=== PATIENT | female | born 1970 | race Caucasian/White ===

== ENCOUNTER → 2016-09-21 | Outpatient (CLI) | payer BC ==
[~2016-09-21] MED LIST: CALCCHW19 PO; MULTCAP PO; OMEG100011 PO; OMEP40CA2 PO; ZANT1TAB PO
--- NOTE | 2016-09-23 09:01 | REP ---
MRI CERVICAL SPINE WITHOUT CONTRAST: HISTORY: Neck pain. COMPARISON: 06/26/2011. A small central disc protrusion is present at the C3-4 level. There is minimal effacement of the thecal sac without spinal cord compression. Uncinate process hypertrophy is present on the right. This produces mild narrowing of the right C3 neural foramen. The left C3 neural foramen is patent. A disc bulge and small central disc protrusion are present at the C4-5 level. There is mild effacement of the thecal sac without spinal cord compression. Uncinate process hypertrophy is present on the right. This produces mild narrowing of the right C4 neural foramen. The left C4 neural foramen is patent. A disc bulge with associated osteophytes formation is present at the C5-6 level. There is moderate effacement of the thecal sac without spinal cord compression. Uncinate process hypertrophy is present on the right. This produces moderate narrowing of the right C5 neural foramen. The left C5 neural foramen is patent. A disc bulge and mild size left paracentral and intraforaminal disc protrusion are present at the C6-7 level. The disc protrusion is decreased in size. There is moderate effacement of the thecal sac without spinal cord compression. Uncinate process hypertrophy is present on the left. There is minimal narrowing of the left C6 neural foramen. The right C6 neural foramen is patent. A small central disc protrusion is present at the C7-T1 level. There is minimal effacement of the thecal sac without spinal cord compression. The C7 neural foramina are patent. There is no other disc bulge or herniation. The remaining neural foramina are patent. The spinal cord is normal in signal intensity. There is no intradural extramedullary lesion. The C3-4 through C6-7 intervertebral discs are decreased in height consistent with disc degeneration. Increased signal intensity on T2-weighted images is present in the endplates of the C6 and 7 vertebral bodies. This represents degenerative change. A 7 mm focus of increased signal intensity on T2-weighted images is present in the right thyroid lobe. IMPRESSION: 1. There is cervical spondylosis at the C3-4 through C7-T1 levels without spinal cord compression. The uncinate process hypertrophy at the C3-4 and C4-5 levels and disc protrusion at the C7-T1 level are new findings. The disc protrusion at the C6-7 level is decreased in size. 2. There is a 7 mm focus of increased signal intensity in the right thyroid lobe. This most likely represents a cyst. Ultrasound may be helpful for further evaluation. Signed by Evan Lott MD 09/23/2016 09:17 A
== END ==
LOC: M RAD 12:14
PROVIDERS: ATTEND Family Medicine
DX: M47.892 Other spondylosis, cervical region (principal); E04.1 Nontoxic single thyroid nodule

== ENCOUNTER → 2016-10-24 | Outpatient (CLI) | payer BC ==
--- NOTE | 2016-10-25 08:23 | REP ---
Clinical: Thyroid nodule. Technique: Real time faust scale and color evaluation using linear high frequency transducer. Findings: The thyroid gland is normal in contour, size, echogenicity, and overall appearance without nodule or cyst. Right lobe measures 4.0 x 1.7 x 1.6 cm. Left lobe measures 3.7 x 1.2 x 1.3 cm. Isthmus measures 3 mm in width. Impression: Normal thyroid ultrasound. Signed by Gt Whitten MD 10/25/2016 08:14 A
== END ==
LOC: M RAD 17:10
PROVIDERS: ATTEND Family Medicine
DX: E07.9 Disorder of thyroid, unspecified (principal)

== ENCOUNTER → 2017-07-17 | Outpatient (REF) | payer BC | LOC: M SFHCWAGY 14:07 | PROVIDERS: ATTEND Nurse Practitioner Family | DX: Z12.4 Encounter for screening for malignant neoplasm of cervix (principal) ==

== ENCOUNTER → 2017-07-17 | Outpatient (CLI) | payer BC ==
--- NOTE | 2017-07-17 15:28 | REPMRS ---
Patient History The patient states she had a clinical breast exam in 07/13 Patient is postmenopausal. Family history of prostate cancer in father at age 50 or over and breast cancer in maternal aunt at age 50 or over. Took hormonal contraceptives for 5 years. Taking estrogen for 4 years. Taking progesterone for 4 years. Digital Woman Screen Mammo: July 17, 2017 - Exam #: [id number] Bilateral CC and MLO view(s) were taken. Technologist: Tracey Snell, Technologist Prior study comparison: July 16, 2016, digital woman screen mammo performed at [facility]. July 17, 2015, digital woman screen mammo performed at [facility]. FINDINGS: There are scattered fibroglandular densities. There has been no change in the appearance of the mammogram from the prior studies. There is a mild amount of residual fibroglandular tissue which is fairly symmetric. There is no interval development of dominant mass, architectural distortion, or clustered microcalcification suggestive of malignancy. ASSESSMENT: BI-RADS/ACR category 1 mammogram. Negative. Recommendation Routine screening mammogram in 1 year (for women over age 40). This mammogram was interpreted with the aid of an FDA-approved computer-aided dectection system. Electronically Signed By: Javier Lopez MD 07/17/17 [id number]
== END ==
LOC: M WHC 13:27
PROVIDERS: ATTEND Nurse Practitioner Family
DX: Z12.31 Encounter for screening mammogram for malignant neoplasm of breast (principal); Z78.0 Asymptomatic menopausal state; Z92.0 Personal history of contraception

== ENCOUNTER → 2018-08-18 | Outpatient (CLI) | payer BC ==
[~2018-08-18] MED LIST changes: +ZANT150T15 PO; -ZANT1TAB PO
--- NOTE | 2018-08-18 10:26 | REPMRS ---
Patient History The patient states she had a clinical breast exam in 07/2018. Patient is postmenopausal. Family history of breast cancer at age 50 or over in maternal aunt, prostate cancer at age 50 or over in father. Took hormonal contraceptives for 5 years. Took estrogen for 5 years. Took progesterone for 5 years. Digital Woman Screen Mammo: August 18, 2018 - Exam #: [id number] Bilateral CC and MLO view(s) were taken. Technologist: Cora Dewey, Technologist Prior study comparison: July 17, 2017, digital woman screen mammo performed at [facility]. July 16, 2016, digital woman screen mammo performed at [facility]. July 17, 2015, digital woman screen mammo performed at [facility]. FINDINGS: There are scattered fibroglandular densities. There has been no change in the appearance of the mammogram from the prior studies. There is a mild amount of scattered fibroglandular density which is fairly symmetric. There is no interval development of dominant mass, architectural distortion, or clustered microcalcification suggestive of malignancy. 3-D tomosynthesis shows no additional findings. Assessment: BI-RADS/ACR category 1 mammogram. Negative Mammogram. Recommendation Routine screening mammogram of both breasts in 1 year (for women over age 40). This patient's Lifetime Breast Cancer RIsk is estimated at 13.7 %. This mammogram was interpreted with the aid of an FDA-approved computer-aided dectection system. Electronically Signed By: Luis Enrique Kaplan MD 08/18/18 [id number]
== END ==
LOC: M WHC 08:38
PROVIDERS: ATTEND Nurse Practitioner Family
DX: Z12.31 Encounter for screening mammogram for malignant neoplasm of breast (principal); Z78.0 Asymptomatic menopausal state; Z92.0 Personal history of contraception; Z92.23 Personal history of estrogen therapy

== ENCOUNTER → 2018-12-04 | Outpatient (CLI) | payer BC ==
--- NOTE | 2018-12-04 07:51 | REP ---
Clinical: Abdominal pain and history of gastroesophageal reflux disease. Technique: Real time faust scale ultrasound examination using curved array transducer. Findings: Liver and visualized pancreas are normal in contour, size, echogenicity without focal hepatic or pancreatic lesions identified. Gallbladder demonstrates mobile gallstone(s) without wall thickening or pericholecystic fluid and no sonographic Yeh's sign. No biliary ductal dilatation is appreciated and the common bile duct measures 3.9 mm diameter. The right kidney is normal in reniform shape without hydronephrosis and measures 10.3 x 5.0 x 4.1 cm. No ascites in the visualized right upper quadrant. Impression: Cholelithiasis. Electronically Signed by Gt Whitten MD 12/04/2018 07:43 A
== END ==
LOC: M RAD 06:44
PROVIDERS: ATTEND Internal Medicine Gastroenterology
DX: K80.20 Calculus of gallbladder without cholecystitis without obstruction (principal); R13.10 Dysphagia, unspecified; Z12.11 Encounter for screening for malignant neoplasm of colon

== ENCOUNTER → 2019-06-16 | Outpatient (CLI) | payer BC ==
[~2019-06-16] MED LIST changes: -OMEP40CA2 PO; +OMEP40CA97 PO
[2019-06-16 14:57] LABS: ALBUMIN 3.9 GM/DL (3.2-5.2); ALT/SGPT 44 U/L (12-78); BILIRUBIN,DIRECT < 0.1 MG/DL (0.0-0.2); BILIRUBIN,TOTAL 0.4 MG/DL (0.2-1.0); LIPASE 112 U/L (73-393); TOTAL PROTEIN 7.7 GM/DL (6.4-8.2)
== END ==
LOC: M LAB 13:45
PROVIDERS: ATTEND Internal Medicine Gastroenterology
DX: K21.9 Gastro-esophageal reflux disease without esophagitis (principal); R13.10 Dysphagia, unspecified; Z12.11 Encounter for screening for malignant neoplasm of colon

== ENCOUNTER → 2019-07-02 | Outpatient (CLI) | payer BC ==
[2019-07-02 09:53] LABS: APPEARANCE, URINE CLEAR (CLEAR); BACTERIA, URINE AUTO 1+ (NEGATIVE); BILIRUBIN, URINE AUTO NEGATIVE (NEGATIVE); BLOOD, URINE BLOOD NEGATIVE (NEGATIVE); COLOR, URINE STRAW (YELLOW); GLUCOSE, URINE (UA) AUTO NEGATIVE (NEGATIVE); KETONE, URINE AUTO NEGATIVE (NEGATIVE); LEUKOCYTE ESTERASE, URINE AUTO NEGATIVE (NEGATIVE); NITRITE, URINE AUTO NEGATIVE (NEGATIVE); PROTEIN, URINE AUTO NEGATIVE (NEGATIVE); RBC, URINE AUTO 1 /HPF (0-3); SPECIFIC GRAVITY URINE AUTO 1.009 (1.002-1.035); SQUAMOUS EPITHELIAL CELL UR AU 1 /HPF (0-6); UROBILINOGEN, URINE AUTO 0.2 mg/dL (0.0-2.0); WBC, URINE AUTO 1 /HPF (0-3)
[2019-07-02 10:23] LABS: ALBUMIN 4.1 GM/DL (3.2-5.2); ALT/SGPT 36 U/L (12-78); BILIRUBIN,TOTAL 0.5 MG/DL (0.2-1.0); BLOOD UREA NITROGEN 21 MG/DL (7-18); CALCIUM LEVEL 9.3 MG/DL (8.5-10.1); CARBON DIOXIDE LEVEL 30 MEQ/L (21-32); CHLORIDE LEVEL 106 MEQ/L (98-107); CHOLESTEROL LEVEL 253 MG/DL (<200); CHOLESTEROL RISK RATIO 4.362 (<5); CREATININE FOR GFR 0.78 MG/DL (0.55-1.30); FREE T4 0.94 NG/DL (0.76-1.46); GLOMERULAR FILTRATION RATE > 60.0 (>51); GLUCOSE, FASTING 92 MG/DL (70-100); HDL CHOLESTEROL 58 MG/DL (>40); LDL CHOLESTEROL 179 MG/DL (<100); NON-HDL-C 195 MG/DL; POTASSIUM SERUM 4.8 MEQ/L (3.5-5.1); SODIUM LEVEL 140 MEQ/L (136-145); TOTAL PROTEIN 7.8 GM/DL (6.4-8.2); TRIGLYCERIDES LEVEL 78 MG/DL (<150)
== END ==
LOC: M LAB 09:05
PROVIDERS: ATTEND Family Medicine
DX: Z00.00 Encounter for general adult medical examination without abnormal findings (principal)

== ENCOUNTER → 2019-08-27 | Outpatient (CLI) | payer BC ==
[2019-08-27 17:06] LABS: BLOOD UREA NITROGEN 15 MG/DL (7-18); CALCIUM LEVEL 8.9 MG/DL (8.5-10.1); CARBON DIOXIDE LEVEL 30 MEQ/L (21-32); CHLORIDE LEVEL 102 MEQ/L (98-107); CK-MB VALUE MASS 2.3 NG/ML (<3.6); CPK CREATINE PHOSPHOKINASE 143 U/L (26-192); CREATININE FOR GFR 0.59 MG/DL (0.55-1.30); GLOMERULAR FILTRATION RATE > 60.0 (>51); GLUCOSE, FASTING 86 MG/DL (70-100); MB/CK RELATIVE INDEX 1.61 (< OR =4); POTASSIUM SERUM 4.2 MEQ/L (3.5-5.1); SODIUM LEVEL 137 MEQ/L (136-145); TROPONIN I < 0.02 NG/ML (< 0.10)
== END ==
LOC: M LAB 16:07
PROVIDERS: ATTEND Family Medicine
DX: I45.10 Unspecified right bundle-branch block (principal)

== ENCOUNTER → 2019-08-27 | Outpatient (REF) | payer BC | LOC: M SFHCLERA 08:54 | PROVIDERS: ATTEND Family Medicine | DX: Z53.9 Procedure and treatment not carried out, unspecified reason (principal) ==

== ENCOUNTER → 2019-09-02 | Outpatient (CLI) | payer BC ==
--- NOTE | 2019-09-04 19:41 | ECHO ---
DATE OF PROCEDURE: 09/02/2019 REFERRING INDIVIDUAL: Dr. Rut Odonnell INDICATION: Right bundle branch block. HEIGHT: 5 feet 8 inches. WEIGHT: 232 pounds 2D MEASUREMENTS: Aortic root: 2.7 cm Left atrium: 3.4 cm Aortic annulus: 2.1 cm Ventricular septum: 1.14 cm Posterior wall: 1.08 cm Left ventricle diastole: 3.7 cm Inferior vena cava: 1.9 cm DOPPLER MEASUREMENTS: No aortic regurgitation. LVOT velocity: 112 cm/s LVOT VTI: 21.5 cm No mitral regurgitation. Mitral E velocity: 84.4 cm/s Mitral A velocity: 89.1 cm/s Mitral deceleration time: 211 ms No tricuspid regurgitation. No pulmonic regurgitation. Pulmonary acceleration time: 123 ms MITRAL ANNULAR TISSUE DOPPLER: E prime septal: 7.7 cm/s E prime lateral: 11.6 cm/s DESCRIPTION: Rhythm was sinus with right bundle branch block type morphology. Image quality was fair. No pericardial effusion. This was a 2D, M-mode, color flow Doppler and pulse wave Doppler examination and included mitral annular tissue Doppler. CONCLUSIONS: 1. Normal left ventricle internal dimensions and wall thickness. Normal regional left ventricular (LV) wall motion and wall thickening. Normal LV systolic function. Left ventricular ejection fraction (LVEF) 65% by visual estimate. Normal LV diastolic function for age. 2. Suggestive of normal pulmonary artery systolic pressure. Normal right ventricle size and systolic function. 3. Otherwise normal appearing echocardiogram Doppler findings. MTDD
== END ==
LOC: M CARPUL 08:13
PROVIDERS: ATTEND Family Medicine
DX: I45.10 Unspecified right bundle-branch block (principal)

== ENCOUNTER → 2019-09-07 | Outpatient (CLI) | payer BC ==
--- NOTE | 2019-09-07 09:40 | REPMRS ---
Patient History The patient states she had a clinical breast exam in 2019. Family history of breast cancer at age 50 or over in maternal aunt, prostate cancer at age 50 or over in father. Took hormonal contraceptives for 5 years. Took estrogen for 5 years. Took progesterone for 5 years. Digital Woman Screen Mammo: September 07, 2019 - Exam #: [id number] Bilateral CC and MLO view(s) were taken. Technologist: Sejal Ritter, Technologist Prior study comparison: August 18, 2018, bilateral digital woman screen mammo performed at [facility]. July 17, 2017, digital woman screen mammo performed at [facility]. July 16, 2016, digital woman screen mammo performed at [facility]. FINDINGS: There are scattered fibroglandular densities. There has been no change in the appearance of the mammogram from the prior studies. There is a mild amount of scattered fibroglandular density which is fairly symmetric. There is no interval development of dominant mass, architectural distortion, or grouped microcalcification suggestive of malignancy. 3-D tomosynthesis shows no additional findings. Assessment: BI-RADS/ACR category 1 mammogram. Negative Mammogram. Recommendation Routine screening mammogram of both breasts in 1 year (for women over age 40). This patient's Lifetime Breast Cancer Risk is estimated at 13.4 %. This mammogram was interpreted with the aid of an FDA-approved computer-aided dectection system. Electronically Signed By: Luis Enrique Kaplan MD 09/07/19 2036
== END ==
LOC: M WHC 08:26
PROVIDERS: ATTEND Nurse Practitioner Family
DX: Z12.31 Encounter for screening mammogram for malignant neoplasm of breast (principal); Z92.0 Personal history of contraception; Z92.89 Personal history of other medical treatment

== ENCOUNTER → 2019-09-07 | Outpatient (CLI) | payer BC | LOC: M PLALAB 09:23 | PROVIDERS: ATTEND Nurse Practitioner Family | DX: Z12.4 Encounter for screening for malignant neoplasm of cervix (principal); Z13.79 Encounter for other screening for genetic and chromosomal anomalies | CPT/HCPCS: 36415; G0123 ==

== ENCOUNTER → 2019-12-10 | Outpatient (CLI) | payer BC ==
--- NOTE | 2019-12-16 08:10 | SLEEPCENT ---
DATE OF STUDY: 12/10/2019 ORDERED BY: Leonarda Hernandez Nocturnal polysomnography was performed for evaluation of sleep physiology in this patient with a history of excessive somnolence and nonrestorative sleep. 7 hours and 45 minutes of data were reviewed. There were 390 minutes of sleep identified. Sleep latency was short at 4.5 minutes. Rapid eye movement (REM) latency was normal at 117 minutes. Sleep architecture showed fragmentation. There were 3 REM cycles. Overall sleep efficiency was 85.5%. The patient's electrocardiogram (EKG) shows a sinus rhythm with an average heart rate of 72 beats per minute. Rate ranged 60-82. Electroencephalogram (EEG) shows normal waveforms for awake and sleep stages. No focal events were identified. There were 401 respiratory events identified of 10 seconds in duration or greater for an apnea-hypopnea index of 61.7. The events were primarily obstructive, not exclusive to sleep stage nor body posture. Arousals from respiratory events occurred 13.4 times per hour and oxygen desaturations were seen into the 80s. There was some activity in the limb leads, but arousals were few and snoring was noted over the entire study. IMPRESSION: Severe obstructive sleep apnea syndrome (G47.33), apnea-hypopnea index 61.7. RECOMMENDATION: The patient should be encouraged to return to the sleep disorder center for pressure therapy. In the interim, alcohol and sedative avoidance should be practiced and caution exercised during the operation of motor vehicles.
== END ==
LOC: M SLEEP 20:00
PROVIDERS: ATTEND Nurse Practitioner Family
DX: R40.0 Somnolence (principal)

== ENCOUNTER → 2020-01-11 | Outpatient (CLI) | payer BC ==
--- NOTE | 2020-01-17 15:34 | SLEEPCENT ---
DATE OF PROCEDURE: 01/11/2020 ORDERED BY: LC Osborn Nocturnal polysomnography was performed for the titration of pressure therapy in this patient with obstructive sleep apnea syndrome. Apnea-hypopnea index 61.7. For testing the patient was fit with a ResMed F30 full-face mask of small size; 4 cm of water pressure were applied to the circuit and the lights were extinguished. 8 hours and 14 minutes of data were reviewed. There were 349.5 minutes of sleep identified. Sleep latency was prolonged at 46.5 minutes. Rapid eye movement (REM) latency was normal at 70 minutes. Sleep architecture was fair with 3 REM cycles. Overall sleep efficiency was 71.4%. The electrocardiogram showed a sinus rhythm, small complexes, average heart rate 68 beats per minute. Electroencephalogram (EEG) showed reasonably normal waveforms for awake and sleep. Respiratory events were fully palliated CPAP at a pressure of +7. Remaining measures of sleep physiology were normal. IMPRESSION: Obstructive sleep apnea syndrome (G47.33). RECOMMENDATIONS: Nightly use of pressure therapy 7 cm of water.
== END ==
LOC: M SLEEP 20:00
PROVIDERS: ATTEND Nurse Practitioner Family
DX: G47.33 Obstructive sleep apnea (adult) (pediatric) (principal)

== ENCOUNTER → 2020-04-28 | Outpatient (REF) | payer BC | LOC: M SFHCLERA 11:09 | PROVIDERS: ATTEND Nurse Practitioner Family | DX: J45.901 Unspecified asthma with (acute) exacerbation (principal); Z20.828 Contact with and (suspected) exposure to other viral communicable diseases ==

== ENCOUNTER → 2020-05-24 | Outpatient (CLI) | payer BC ==
[~2020-05-24] MED LIST changes: +PROHANCE 279.3MG/ML 15ML VIAL As Ordered ONE; +PROHANCE 279.3MG/ML 5ML VIAL As Ordered ONE
--- NOTE | 2020-05-25 09:17 | REP ---
INDICATION: HIGH RISK FOR BREAST CA. COMPARISON: Mammogram 09/07/2019. TECHNIQUE: Three [facility] MRI imaging was performed with a dedicated breast coil. Axial, coronal, and sagittal T1 and T2 weighted scans were obtained with and without fat saturation in the usual fashion. The study includes dynamically acquired post gadolinium-enhanced imaging with image subtraction. Maximum intensity projection and multi planar reformation imaging is included as well. This study is interpreted with the aid of Ensygnia, an FDA approved computer aided detection (CAD) software program, on a dedicated breast MRI workstation. The gadolinium enhancement dose is 20 mL of intravenous ProHance. FINDINGS: There is mild fibroglandular tissue bilaterally. There couple tiny subcentimeter cysts bilaterally. Is minimal background parenchymal enhancement. No axillary adenopathy is seen. There is no suspicious enhancing mass or morphologic abnormality IMPRESSION: BI-RADS category 2 benign bilateral breast MRI. No suspicious enhancing mass or morphologic abnormality. <Electronically signed by Javier Lopez > 05/25/20 0999
== END ==
LOC: M RAD 14:58
PROVIDERS: ATTEND Nurse Practitioner Family
DX: Z91.89 Other specified personal risk factors, not elsewhere classified (principal); N60.02 Solitary cyst of left breast; N60.01 Solitary cyst of right breast
CPT/HCPCS: A9576; C8908

== ENCOUNTER → 2020-08-31 | Outpatient (CLI) | payer BC ==
[~2020-08-31] MED LIST changes: -PROHANCE 279.3MG/ML 15ML VIAL As Ordered ONE; -PROHANCE 279.3MG/ML 5ML VIAL As Ordered ONE
--- NOTE | 2020-08-31 10:56 | REPMRS ---
Patient History The patient states she had a clinical breast exam in August 2020. Family history of breast cancer at age 50 or over in maternal aunt, prostate cancer at age 50 or over in father. Took hormonal contraceptives for 5 years. Took estrogen for 5 years. Took progesterone for 5 years. Digital Woman Screen Mammo: August 31, 2020 - Exam #: [id number] Bilateral CC and MLO view(s) were taken. Technologist: RT Ivy Prior study comparison: September 07, 2019, bilateral digital woman screen mammo performed at [facility]. August 18, 2018, bilateral digital woman screen mammo performed at [facility]. July 17, 2017, digital woman screen mammo performed at [facility]. FINDINGS: The breast tissue is almost entirely fat. The Volpara volumetric breast density category is: A. There has been no change in the appearance of the mammogram from the prior studies. There is no interval development of dominant mass, architectural distortion, or grouped microcalcification typical of malignancy. 3-D tomosynthesis shows no additional findings. Assessment: BI-RADS/ACR category 1 mammogram. Negative Mammogram. Recommendation Routine screening mammogram of both breasts in 1 year (for women over age 40). This patient's [facility] Lifetime Breast Cancer RIsk is estimated at 13.1 %. This mammogram was interpreted with the aid of an FDA-approved computer-aided dectection system. Electronically Signed By: Luis Enrique Kaplan MD 08/31/20 1011
== END ==
LOC: M WHC 07:50
PROVIDERS: ATTEND Nurse Practitioner Family
DX: Z12.31 Encounter for screening mammogram for malignant neoplasm of breast (principal)

== ENCOUNTER → 2021-06-13 | Outpatient (CLI) | payer BC ==
[~2021-06-13] MED LIST changes: +OMEP40CA4 PO; -OMEP40CA97 PO; +PROHANCE 279.3MG/ML 15ML VIAL As Ordered ONE; +PROHANCE 279.3MG/ML 5ML VIAL As Ordered ONE
--- NOTE | 2021-06-13 20:42 | REP ---
INDICATION: HIGH RISK FM H/O BREAST CA. COMPARISON: Comparison breast MRI study is from May 24, 2020. Comparison mammography August 31, 2020. TECHNIQUE: Three [facility] MRI imaging was performed with a dedicated breast coil. Axial, coronal, and sagittal T1 and T2 weighted scans were obtained with and without fat saturation in the usual fashion. The study includes dynamically acquired post gadolinium-enhanced imaging with image subtraction. Maximum intensity projection and multi planar reformation imaging is included as well. This study is interpreted with the aid of SEA, an FDA approved computer aided detection (CAD) software program, on a dedicated breast MRI workstation. The gadolinium enhancement dose is 20 mL of intravenous ProHance. FINDINGS: There is a minimal amount of fibroglandular tissue bilaterally corresponding with the mammographic pattern. Breast parenchyma is extensively fat replaced and unchanged. There is minimal background parenchymal enhancement. There is no evidence of axillary lymphadenopathy or significant breast cystic change. High-resolution pre and post-contrast T1 and T2 weighted scans show no suspicious morphologic abnormality in either breast. Dynamically acquired sequential postcontrast images show no suspicious area of enhancement and washout kinetics in either breast to suggest malignancy. Subtraction images show no additional abnormality. IMPRESSION: BI-RADS category 1 negative bilateral breast MRI findings. <Electronically signed by Luis Enrique Kaplan > 06/13/212
== END ==
LOC: M RAD 14:49
PROVIDERS: ATTEND Nurse Practitioner Women's Health
DX: Z91.89 Other specified personal risk factors, not elsewhere classified (principal); Z80.3 Family history of malignant neoplasm of breast
CPT/HCPCS: A9576; C8908

== ENCOUNTER → 2022-03-28 | Outpatient (CLI) | payer BC ==
[~2022-03-28] MED LIST changes: -PROHANCE 279.3MG/ML 15ML VIAL As Ordered ONE; -PROHANCE 279.3MG/ML 5ML VIAL As Ordered ONE
[2022-03-28 11:19] LABS: MAGNESIUM LEVEL 2.2 MG/DL (1.8-2.4)
[2022-03-28 11:46] LABS: TOTAL 25(OH) VITAMIN D 20.2 NG/ML (30.0-100.0)
== END ==
LOC: M PLALAB 07:46
PROVIDERS: ATTEND Nurse Practitioner Family
DX: R13.10 Dysphagia, unspecified (principal); K22.70 Barrett's esophagus without dysplasia; K21.9 Gastro-esophageal reflux disease without esophagitis; E56.9 Vitamin deficiency, unspecified

== ENCOUNTER → 2022-03-28 | Outpatient (CLI) | payer BC ==
[2022-03-28 11:26] LABS: BLOOD UREA NITROGEN 17 MG/DL (7-18); CALCIUM LEVEL 9.2 MG/DL (8.5-10.1); CARBON DIOXIDE LEVEL 26 MEQ/L (21-32); CHLORIDE LEVEL 106 MEQ/L (98-107); CHOLESTEROL LEVEL 200 MG/DL (<200); CHOLESTEROL RISK RATIO 3.921 (<5); CREATININE FOR GFR 0.61 MG/DL (0.55-1.30); GLOMERULAR FILTRATION RATE > 60.0 (>51); GLUCOSE, FASTING 92 MG/DL (70-100); HDL CHOLESTEROL 51 MG/DL (>40); LDL CHOLESTEROL 132 MG/DL (<100); NON-HDL-C 149 MG/DL; POTASSIUM SERUM 4.4 MEQ/L (3.5-5.1); SODIUM LEVEL 137 MEQ/L (136-145); TRIGLYCERIDES LEVEL 84 MG/DL (<150)
[2022-03-28 12:01] LABS: HEMOGLOBIN A1c 5.2 %
== END ==
LOC: M PLALAB 07:47
PROVIDERS: ATTEND Family Medicine
DX: E78.5 Hyperlipidemia, unspecified (principal); E66.01 Morbid (severe) obesity due to excess calories; Z68.41 Body mass index [BMI] 40.0-44.9, adult

== ENCOUNTER → 2022-04-16 | Outpatient (CLI) | payer BC | LOC: M WHC 07:09 | PROVIDERS: ATTEND Nurse Practitioner Family | DX: Z12.31 Encounter for screening mammogram for malignant neoplasm of breast (principal) ==

== ENCOUNTER → 2022-05-20 | Outpatient (CLI) | payer BC | LOC: M WHC 11:00 | PROVIDERS: ATTEND Nurse Practitioner Family | DX: N63.32 Unspecified lump in axillary tail of the left breast (principal) | CPT/HCPCS: 76642; 77066; G0279 ==

== ENCOUNTER → 2022-08-30 | Outpatient (CLI) | payer BC | LOC: M LAB 08:56 | PROVIDERS: ATTEND Nurse Practitioner Family | DX: E55.9 Vitamin D deficiency, unspecified (principal); K22.70 Barrett's esophagus without dysplasia ==

== ENCOUNTER → 2022-09-27 | Outpatient (REF) | LOC: M LABSMTC 08:57 | PROVIDERS: ATTEND Family Medicine | DX: Z11.52 Encounter for screening for COVID-19 (principal) ==

== ENCOUNTER 2023-06-21 18:07 | Inpatient (IN) | payer BC ==
[~2023-06-21] VITALS: Ht 172.7 cm; Wt 106.0 kg
[2023-06-21 19:14] LABS: BASO # 0.1 10^3/uL (0.0-0.2); BASO % 0.4 % (0.0-1.0); EOS # 0.1 10^3/uL (0.0-0.5); EOS % 0.7 % (0.0-3.0); HEMATOCRIT 43.8 % (36.0-47.0); HEMOGLOBIN 14.4 g/dl (12.0-15.5); LYMPH # 1.5 10^3/uL (1.5-5.0); LYMPH % 12.1 % (24.0-44.0); MEAN CORPUSCULAR HEMOGLOBIN 29.9 pg (27.0-33.0); MEAN CORPUSCULAR HGB CONC 32.9 g/dl (32.0-36.5); MEAN CORPUSCULAR VOLUME 91.1 fl (80.0-96.0); MONO % 8.4 % (2.0-8.0); NEUTROPHILS # 9.4 10^3/uL (1.5-8.5); NEUTROPHILS % 78.1 % (36.0-66.0); PLATELET COUNT, AUTOMATED 241 10^3/uL (150-450); RED BLOOD COUNT 4.81 10^6/uL (4.00-5.40); WHITE BLOOD COUNT 12.1 10^3/uL (4.0-10.0)
[2023-06-21] MEDS ORDERED: KETOROLAC 30 MG/ML 1ML VIAL IV ONE (19:20)
[2023-06-21] MEDS ORDERED: NS 1,000 ML IV ONE (19:20)
[2023-06-21] MEDS ORDERED: ONDANSETRON 4MG 2ML VIAL IV ONE (19:20)
[2023-06-21 19:43] LABS: LIPASE 31 U/L (12-53)
[2023-06-21 19:45] LABS: ALBUMIN 3.9 G/DL (3.2-5.2); ALKALINE PHOSPHATASE 96 U/L (46-116); ALT/SGPT 19 U/L (7.0-40); AST/SGOT 12 U/L (<34); BILIRUBIN,DIRECT 0.1 MG/DL (<0.4); BILIRUBIN,TOTAL 0.4 MG/DL (0.3-1.2); BLOOD UREA NITROGEN 16 MG/DL (9-23); CALCIUM LEVEL 8.7 MG/DL (8.5-10.1); CARBON DIOXIDE LEVEL 28 MMOL/L (20-31); CHLORIDE LEVEL 99 MMOL/L (98-107); CK-MB VALUE MASS 1.1 NG/ML (<3.6); CPK CREATINE PHOSPHOKINASE 129 U/L (34-145); CREATININE FOR GFR 0.59 MG/DL (0.55-1.30); GLOMERULAR FILTRATION RATE > 60.0 (>51); GLUCOSE, FASTING 113 MG/DL (60-100); MB/CK RELATIVE INDEX 0.85 (< OR =4); POTASSIUM SERUM 3.7 MMOL/L (3.5-5.1); SODIUM LEVEL 136 MMOL/L (136-145); TOTAL PROTEIN 7.4 G/DL (5.7-8.2)
[2023-06-21 19:47] LABS: THYROID STIMULATING HORMONE 2.207 uIU/ML (0.55-4.78)
[2023-06-21 20:46] LABS: CK-MB VALUE MASS < 1.0 NG/ML (<3.6)
[2023-06-21 20:50] LABS: CPK CREATINE PHOSPHOKINASE 127 U/L (34-145); MB/CK RELATIVE INDEX 0.78 (< OR =4)
[2023-06-22] VITALS (7 sets, daily range): BP systolic 125–154; BP diastolic 74–84; TEMP 97.2–99; O2SAT 93–97
[2023-06-22] MEDS ORDERED: PIPERACILLIN/TAZOBACTAM SOD 4.5 GM in D5W MINI-BAG PLUS 50 ML IV ONE (00:45)
[2023-06-22] MEDS ORDERED: ONDANSETRON 4MG 2ML VIAL IV ONE (01:00)
[2023-06-22] MEDS ORDERED: MORPHINE 2 MG/ML 1ML VIAL IV ONE ×2 (01:00→08:30)
[2023-06-22] MEDS ORDERED: ONDANSETRON 4MG 2ML VIAL IV PRN ×2 (03:05→10:10)
[2023-06-22] MEDS: MORPHINE 2 MG/ML 1ML VIAL IV PRN ×2 (03:32→07:44)
[2023-06-22] MEDS: LR 1,000 ML IV SCH ×3 (04:14→23:57)
[2023-06-22 06:02] LABS: CHOLESTEROL RISK RATIO 4.18 (<5); HDL CHOLESTEROL 51.9 MG/DL (>40); LDL CHOLESTEROL 149.5 MG/DL (<100); NON-HDL-C 165.1 MG/DL
[2023-06-22] MEDS: PIPERACILLIN/TAZOBACTAM SOD 3.375 GM in D5W MINI-BAG PLUS 50 ML IV SCH ×3 (06:37→19:44)
[2023-06-22] MEDS: PANTOPRAZOLE 40MG VIAL IV SCH (08:29)
[2023-06-22] MEDS ORDERED: ENOXAPARIN 40MG/0.4ML SYRINGE (J1650 PER 10MG) SC SCH (09:00)
[2023-06-22] MEDS ORDERED: SEMA2PEN SC (09:04)
[2023-06-22] MEDS ORDERED: oxyCODONE 5MG TAB PO PRN (10:10)
[2023-06-22] MEDS ORDERED: LR 1,000 ML IV SCH (10:10)
[2023-06-22] MEDS ORDERED: HYDROMORPHONE HCL 0.5 MG/ 0.5 ML SYRINGE IV PRN (10:10)
[2023-06-22] MEDS ORDERED: MEPERIDINE 25 MG/ML 1ML VIAL IV PRN (10:10)
[2023-06-22] MEDS ORDERED: fentaNYL 100 MCG/2 ML INJECTION IV PRN (10:10)
[2023-06-22] MEDS ORDERED: MORPHINE 4 MG/ML 1ML VIAL IV PRN (11:00)
[2023-06-22] MEDS: KETOROLAC 30 MG/ML 1ML VIAL IV SCH ×2 (11:12→19:44)
[2023-06-22] MEDS ORDERED: LIDOCAINE 1% SDV 30ML VIAL As Ordered ONE (13:58)
[2023-06-22] MEDS ORDERED: INDOCYANINE GREEN 25MG VIAL (IC-GREEN) As Ordered ONE (13:58)
[2023-06-22] MEDS ORDERED: LIDOCAINE 2% 100MG/5ML SDV (FOR ANES.) As Ordered ONE (16:05)
[2023-06-22] MEDS ORDERED: HYDROmorphone HCL 2MG/ML 1ML VIAL As Ordered ONE (16:05)
[2023-06-22] MEDS ORDERED: fentaNYL 100 MCG/2 ML INJECTION As Ordered ONE (16:05)
[2023-06-22] MEDS ORDERED: propofoL 200 MG/20 ML VIAL As Ordered ONE ×3 (16:05→17:47)
[2023-06-22] MEDS ORDERED: ROCURONIUM BROMIDE 50MG/5ML VIAL As Ordered ONE ×2 (16:05→16:18)
[2023-06-22] MEDS ORDERED: LABETALOL 100MG/20ML VIAL As Ordered ONE (16:05)
[2023-06-22] MEDS ORDERED: ACETAMINOPHEN 1000MG 100ML IV BAG As Ordered ONE (16:05)
[2023-06-22] MEDS ORDERED: ONDANSETRON 4MG 2ML VIAL As Ordered ONE (16:05)
[2023-06-22] MEDS ORDERED: KETOROLAC 60MG 2ML VIAL As Ordered ONE (16:05)
[2023-06-22] MEDS ORDERED: HOME MED LIST COMPLETE! XX SCH (16:15)
[2023-06-22] MEDS ORDERED: SUGAMMADEX SODIUM 500 MG/5 ML VIAL (BRIDION) As Ordered ONE (17:01)
[2023-06-23] VITALS: BP 125/75; TEMP 97.9; O2SAT 95
[2023-06-23] MEDS: KETOROLAC 30 MG/ML 1ML VIAL IV SCH ×4 (00:52→17:58)
[2023-06-23] MEDS: PIPERACILLIN/TAZOBACTAM SOD 3.375 GM in D5W MINI-BAG PLUS 50 ML IV SCH ×4 (01:27→17:59)
[2023-06-23 04:00] VITALS: BP 121/67; TEMP 97.9; O2SAT 96
[2023-06-23 06:12] LABS: MEAN CORPUSCULAR HEMOGLOBIN 30.3 pg (27.0-33.0); MEAN CORPUSCULAR HGB CONC 32.7 g/dl (32.0-36.5); MEAN CORPUSCULAR VOLUME 92.5 fl (80.0-96.0); PLATELET COUNT, AUTOMATED 192 10^3/uL (150-450); WHITE BLOOD COUNT 11.4 10^3/uL (4.0-10.0)
[2023-06-23 06:20] LABS: HEMOGLOBIN 12.1 g/dl (12.0-15.5)
[2023-06-23 06:36] LABS: ALBUMIN 2.8 G/DL (3.2-5.2); ALKALINE PHOSPHATASE 90 U/L (46-116); ALT/SGPT 152 U/L (7.0-40); AST/SGOT 102 U/L (<34); BLOOD UREA NITROGEN 10 MG/DL (9-23); CALCIUM LEVEL 8.2 MG/DL (8.5-10.1); CARBON DIOXIDE LEVEL 29 MMOL/L (20-31); CHLORIDE LEVEL 106 MMOL/L (98-107); CREATININE FOR GFR 0.53 MG/DL (0.55-1.30); GLOMERULAR FILTRATION RATE > 60.0 (>51); GLUCOSE, FASTING 112 MG/DL (60-100); POTASSIUM SERUM 4.1 MMOL/L (3.5-5.1); SODIUM LEVEL 143 MMOL/L (136-145); TOTAL PROTEIN 5.8 G/DL (5.7-8.2)
[2023-06-23 08:00] VITALS: BP 137/71; TEMP 97.9; O2SAT 94
[2023-06-23] MEDS: PANTOPRAZOLE 40MG VIAL IV SCH (08:22)
[2023-06-23] MEDS: ENOXAPARIN 40MG/0.4ML SYRINGE (J1650 PER 10MG) SC SCH ×2 (08:23→08:42)
[2023-06-23 12:00] VITALS: BP 135/71; TEMP 97.9; O2SAT 92
[2023-06-23 16:00] VITALS: BP 141/79; TEMP 97.9; O2SAT 93
[2023-06-23 20:00] VITALS: BP 118/69; TEMP 97.9; O2SAT 92
[2023-06-24] MEDS: KETOROLAC 30 MG/ML 1ML VIAL IV SCH ×2 (01:17→06:00)
[2023-06-24] MEDS: PIPERACILLIN/TAZOBACTAM SOD 3.375 GM in D5W MINI-BAG PLUS 50 ML IV SCH ×2 (01:18→06:01)
[2023-06-24 01:32] VITALS: BP 120/70; TEMP 97.9; O2SAT 93
[2023-06-24 05:00] VITALS: BP 120/70; TEMP 97.5; O2SAT 95
[2023-06-24 08:00] VITALS: BP 120/73; TEMP 97.7; O2SAT 92
[2023-06-24 08:09] LABS: HEMATOCRIT 37.1 % (36.0-47.0); HEMOGLOBIN 11.7 g/dl (12.0-15.5); MEAN CORPUSCULAR HEMOGLOBIN 29.5 pg (27.0-33.0); MEAN CORPUSCULAR HGB CONC 31.5 g/dl (32.0-36.5); MEAN CORPUSCULAR VOLUME 93.7 fl (80.0-96.0); PLATELET COUNT, AUTOMATED 201 10^3/uL (150-450); RED BLOOD COUNT 3.96 10^6/uL (4.00-5.40); WHITE BLOOD COUNT 6.9 10^3/uL (4.0-10.0)
[2023-06-24] MEDS ORDERED: PERCOCET 5MG/325MG TAB PO PRN (08:10)
[2023-06-24 08:32] LABS: ALBUMIN 2.8 G/DL (3.2-5.2); ALKALINE PHOSPHATASE 87 U/L (46-116); ALT/SGPT 141 U/L (7.0-40); AST/SGOT 70 U/L (<34); BILIRUBIN,TOTAL 0.7 MG/DL (0.3-1.2); BLOOD UREA NITROGEN 12 MG/DL (9-23); CALCIUM LEVEL 8.2 MG/DL (8.5-10.1); CARBON DIOXIDE LEVEL 30 MMOL/L (20-31); CHLORIDE LEVEL 106 MMOL/L (98-107); CREATININE FOR GFR 0.66 MG/DL (0.55-1.30); GLOMERULAR FILTRATION RATE > 60.0 (>51); GLUCOSE, FASTING 99 MG/DL (60-100); POTASSIUM SERUM 4.3 MMOL/L (3.5-5.1); SODIUM LEVEL 143 MMOL/L (136-145)
[2023-06-24] MEDS ORDERED: PANTOPRAZOLE 40MG TAB (PROTONIX) PO SCH (09:00)
[2023-06-24] MEDS: ENOXAPARIN 40MG/0.4ML SYRINGE (J1650 PER 10MG) SC SCH (09:00)
[2023-06-24] MEDS ORDERED: METR-265 PO (09:30)
[2023-06-24] MEDS ORDERED: PERCOCET PO (09:30)
[2023-06-24] MEDS ORDERED: CIPR-249 PO (09:31)
[2023-06-24 10:14] VITALS: BP 123/74; TEMP 97.9; O2SAT 94
[2023-06-24] MEDS ORDERED: AMOX875T2 PO (10:31)
[2023-06-24] MEDS ORDERED: PERC5TAB12 PO (10:42)
== END 2023-06-24 11:27 | disposition home or self-care (01) | DRG 263 ==
LOC: M ED 18:07 → M ED INP 06-22 03:03 → ENRESERV 06-22 03:17 → M MSPAV 06-22 03:55
PROVIDERS: ADMIT Family Medicine; ATTEND Internal Medicine
PROC: 8E0W4CZ Robotic Assisted Procedure of Trunk Region, Percutaneous Endoscopic Approach (ICD-10-PCS; 2023-06-22)
PROC: 0FT44ZZ Resection of Gallbladder, Percutaneous Endoscopic Approach (ICD-10-PCS; principal; 2023-06-22 11:00)
DX: K81.0 Acute cholecystitis (principal); D72.829 Elevated white blood cell count, unspecified; K21.9 Gastro-esophageal reflux disease without esophagitis; Z79.899 Other long term (current) drug therapy; R03.0 Elevated blood-pressure reading, without diagnosis of hypertension

== ENCOUNTER → 2023-07-25 | Outpatient (CLI) | payer BC ==
[~2023-07-25] MED LIST changes: +AMOX875T2 PO; +CIPR-249 PO; +METR-265 PO; +PERC5TAB12 PO; +PERCOCET PO; +SEMA2PEN SC
== END ==
LOC: M WHC 07:30
PROVIDERS: ATTEND Nurse Practitioner Family
DX: Z12.31 Encounter for screening mammogram for malignant neoplasm of breast (principal)

== ENCOUNTER → 2023-07-25 | Outpatient (REF) | payer BC | LOC: M SFHCWAGY 10:21 | PROVIDERS: ATTEND Nurse Practitioner Family | DX: Z12.4 Encounter for screening for malignant neoplasm of cervix (principal) | CPT/HCPCS: 87624; G0123 ==

== ENCOUNTER → 2023-09-24 | Outpatient (CLI) | payer BC | LOC: M RAD 06:49 | PROVIDERS: ATTEND Family Medicine | DX: K66.8 Other specified disorders of peritoneum (principal) ==

== ENCOUNTER → 2023-10-15 | Outpatient (CLI) | payer BC ==
[2023-10-15 11:49] LABS: BLOOD UREA NITROGEN 12 MG/DL (9-23); CREATININE FOR GFR 0.65 MG/DL (0.55-1.30); GLOMERULAR FILTRATION RATE > 60.0 (>51)
== END ==
LOC: M LAB 10:23
PROVIDERS: ATTEND Family Medicine
DX: E66.9 Obesity, unspecified (principal)

== ENCOUNTER → 2023-10-23 | Outpatient (CLI) | payer BC ==
[~2023-10-23] MED LIST changes: +GASTROGRAFIN SOLUTION 30ML As Ordered ONE; +ISOVUE-370 76% 100ML VIAL As Ordered ONE
== END ==
LOC: M RAD 07:30
PROVIDERS: ATTEND Family Medicine
DX: K66.8 Other specified disorders of peritoneum (principal)
CPT/HCPCS: 74177; Q9963; Q9967

== ENCOUNTER → 2024-08-02 | Outpatient (CLI) | payer BC ==
[~2024-08-02] MED LIST changes: -GASTROGRAFIN SOLUTION 30ML As Ordered ONE; -ISOVUE-370 76% 100ML VIAL As Ordered ONE
== END ==
LOC: M SOG 10:35
PROVIDERS: ATTEND Physician Assistant
DX: M25.562 Pain in left knee (principal)

== ENCOUNTER 2024-08-25 07:00 | Outpatient (RCR) | payer BC | END 2024-08-27 | LOC: M PT 07:00 | PROVIDERS: ATTEND Physician Assistant | DX: M25.562 Pain in left knee (principal) ==

== ENCOUNTER 2024-09-08 07:00 | Outpatient (RCR) | payer BC | END 2024-09-24 | LOC: M PT 07:00 | PROVIDERS: ATTEND Physician Assistant | DX: M25.562 Pain in left knee (principal) ==

== ENCOUNTER → 2024-09-17 | Outpatient (CLI) | payer BC | LOC: M RAD 06:37 | PROVIDERS: ATTEND Physician Assistant | DX: M17.12 Unilateral primary osteoarthritis, left knee (principal); M25.562 Pain in left knee; S83.242A Other tear of medial meniscus, current injury, left knee, initial encounter; M25.462 Effusion, left knee ==

== ENCOUNTER 2024-11-02 06:48 | Day surgery (SDC) | payer BC ==
[~2024-11-02] VITALS: Ht 172.7 cm; Wt 112.6 kg
[~2024-11-02 06:48] MED LIST changes: +CELE0.09 PO; +D3 H2000 PO; +GLYCOPYRROLATE INJ 0.2 MG/ML 2 ML VIAL As Ordered ONE; +HYDR-3490 PO; +KETOROLAC 30 MG/ML 1ML VIAL As Ordered ONE; +LIDOCAINE 2% 100MG/5ML SDV (FOR ANES.) As Ordered ONE; +MIDAZOLAM INJ 2MG/2ML VIAL As Ordered ONE; +ONDANSETRON 4MG 2ML VIAL As Ordered ONE; +VENTAER INH; +fentaNYL 100 MCG/2 ML INJECTION As Ordered ONE; +propofoL 200 MG/20 ML VIAL As Ordered ONE
[2024-11-02] MEDS: LR 1,000 ML IV SCH (08:01)
[2024-11-02] MEDS: ceFAZolin SODIUM 2 GM in DEXTROSE 5% (D5W) ADV/MINI-BAG 50 ML IV ONE (08:55)
[2024-11-02] MEDS ORDERED: ACETAMINOPHEN 1000MG/100ML IV BAG As Ordered ONE (09:02)
[2024-11-02] MEDS: LIDOCAINE W/EPINEPHRINE 1% 20ML VIAL As Ordered ONE (09:32)
[2024-11-02] MEDS: MORPHINE 10 MG/ML 1ML VIAL As Ordered ONE (10:00)
[2024-11-02] MEDS ORDERED: fentaNYL 100 MCG/2 ML INJECTION IV PRN (10:30)
[2024-11-02] MEDS ORDERED: LR 1,000 ML IV SCH (10:30)
[2024-11-02] MEDS: oxyCODONE 5MG TAB PO PRN (10:36)
[2024-11-02] MEDS: HYDROMORPHONE HCL 0.5 MG/ 0.5 ML SYRINGE IV PRN (10:36)
[2024-11-02] MEDS: ONDANSETRON 4MG 2ML VIAL IV PRN (10:36)
[2024-11-02] MEDS ORDERED: HYDR-3713 PO (10:48)
[2024-11-02] MEDS: METOCLOPRAMIDE INJ 10MG/2ML VIAL IV PRN (11:51)
[2024-11-02 13:03] VITALS: BP 133/71; TEMP 97.5; O2SAT 98
== END 2024-11-02 13:24 | disposition home or self-care (01) ==
LOC: M SDC 06:48
PROVIDERS: ATTEND Neuromusculoskeletal Medicine, Sports Medicine
DX: M17.12 Unilateral primary osteoarthritis, left knee (principal); M25.562 Pain in left knee; M67.862 Other specified disorders of synovium, left knee; I10 Essential (primary) hypertension; R51.9 Headache, unspecified; J45.909 Unspecified asthma, uncomplicated; G47.33 Obstructive sleep apnea (adult) (pediatric); Z79.899 Other long term (current) drug therapy; Z79.51 Long term (current) use of inhaled steroids
CPT/HCPCS: 29876; 29880; 97116; J0131; J0665; J0690; J1100; J1171; J1596; J1885; J2250; J2405; J2765; J3010

== ENCOUNTER 2024-11-23 07:00 | Outpatient (RCR) | payer BC ==
[~2024-11-23 07:00] MED LIST changes: -GLYCOPYRROLATE INJ 0.2 MG/ML 2 ML VIAL As Ordered ONE; +HYDR-3713 PO; -KETOROLAC 30 MG/ML 1ML VIAL As Ordered ONE; -LIDOCAINE 2% 100MG/5ML SDV (FOR ANES.) As Ordered ONE; -MIDAZOLAM INJ 2MG/2ML VIAL As Ordered ONE; -ONDANSETRON 4MG 2ML VIAL As Ordered ONE; -fentaNYL 100 MCG/2 ML INJECTION As Ordered ONE; -propofoL 200 MG/20 ML VIAL As Ordered ONE
== END 2024-11-24 ==
LOC: M PT 07:00
PROVIDERS: ATTEND Neuromusculoskeletal Medicine, Sports Medicine
DX: S83.242D Other tear of medial meniscus, current injury, left knee, subsequent encounter (principal)

== ENCOUNTER → 2025-05-20 | Outpatient (REF) | payer BC ==
[2025-05-24 12:17] LABS: HPV APTIMA Not Detected (Not Detected)
== END ==
LOC: M PLALAB 11:00
PROVIDERS: ATTEND Physician Assistant
DX: R87.610 Atypical squamous cells of undetermined significance on cytologic smear of cervix (ASC-US) (principal)
CPT/HCPCS: 87624; G0123

== ENCOUNTER → 2025-05-20 | Outpatient (CLI) | payer BC | LOC: M WHC 09:10 | PROVIDERS: ATTEND Physician Assistant | DX: Z12.31 Encounter for screening mammogram for malignant neoplasm of breast (principal); R92.313 Mammographic fatty tissue density, bilateral breasts | CPT/HCPCS: 77063; 77067; 87624; G0123 ==